=== PATIENT | female | born 1955 | race Caucasian/White ===

== ENCOUNTER → 2023-05-13 14:39 | Outpatient (REF) | payer MEDICARE, SELFPAY | LOC: WDC 14:39 | PROVIDERS: ATTENDING PHYSICIAN Family Medicine | DX: Z12.31 Encounter for screening mammogram for malignant neoplasm of breast (principal) | CPT/HCPCS: 77063; 77067 ==

== ENCOUNTER → 2023-05-29 17:16 | Outpatient (REF) | payer MEDICARE, SELFPAY | LOC: RAD 17:16 | PROVIDERS: ATTENDING PHYSICIAN Nurse Practitioner Family; FAMILY PHYSICIAN Family Medicine | DX: K59.00 Constipation, unspecified (principal) | CPT/HCPCS: 74019 ==

== ENCOUNTER → 2023-08-12 06:36 | Day surgery (SDC) | payer MEDICARE, SELFPAY | LOC: GI 06:36 | PROVIDERS: ATTENDING PHYSICIAN Internal Medicine; FAMILY PHYSICIAN Family Medicine | DX: K52.9 Noninfective gastroenteritis and colitis, unspecified (principal); D12.0 Benign neoplasm of cecum; K57.30 Diverticulosis of large intestine without perforation or abscess without bleeding; K62.89 Other specified diseases of anus and rectum; K64.9 Unspecified hemorrhoids; K29.71 Gastritis, unspecified, with bleeding; K22.0 Achalasia of cardia; Q39.9 Congenital malformation of esophagus, unspecified; K44.9 Diaphragmatic hernia without obstruction or gangrene; K31.89 Other diseases of stomach and duodenum; Z98.890 Other specified postprocedural states; Z98.0 Intestinal bypass and anastomosis status; Z80.0 Family history of malignant neoplasm of digestive organs | CPT/HCPCS: 45380; 43239; 88305; 88342 ==

== ENCOUNTER → 2023-09-27 08:56 | Outpatient (REF) | payer MEDICARE, SELFPAY | LOC: RAD 08:56 | PROVIDERS: ATTENDING PHYSICIAN Internal Medicine; FAMILY PHYSICIAN Family Medicine | DX: K22.0 Achalasia of cardia (principal) | CPT/HCPCS: 74220 ==

== ENCOUNTER → 2023-12-05 16:17 | Outpatient (REF) | payer MEDICARE, SELFPAY | LOC: RAD 16:17 | PROVIDERS: ATTENDING PHYSICIAN Nurse Practitioner Adult Health; FAMILY PHYSICIAN Family Medicine; REFERRING PHYSICIAN Internal Medicine Rheumatology | DX: M25.512 Pain in left shoulder (principal); M54.2 Cervicalgia | CPT/HCPCS: 72040; 73030 ==

== ENCOUNTER → 2024-05-12 14:08 | Outpatient (REF) | payer MEDICARE, SELFPAY | LOC: WDC 14:08 | PROVIDERS: ATTENDING PHYSICIAN Family Medicine | DX: Z12.31 Encounter for screening mammogram for malignant neoplasm of breast (principal) | CPT/HCPCS: 77063; 77067 ==

== ENCOUNTER → 2025-02-26 07:52 | Outpatient (REF) | payer MEDICARE, SELFPAY | LOC: RAD 07:52 | PROVIDERS: ATTENDING PHYSICIAN Internal Medicine Cardiovascular Disease; FAMILY PHYSICIAN Family Medicine | DX: I71.21 Aneurysm of the ascending aorta, without rupture (principal) | CPT/HCPCS: 71275; Q9967 ==